=== PATIENT | female | born 1965 | race Caucasian/White ===

== ENCOUNTER → 2016-10-31 | Outpatient (CLI) | payer OTHER ==
--- NOTE | 2016-11-01 07:42 | MM ---
Reason for exam: screening (asymptomatic). Last mammogram was performed 3 years and 5 months ago. History: Family history of breast cancer in aunt and breast cancer in 2 cousins. Implants in both breasts, 2010. Physical Findings: A clinical breast exam by your physician is recommended on an annual basis and results should be correlated with mammographic findings. MG Screening Mammo Implant/CAD Bilateral CC, MLO, and ID view(s) were taken. Prior study comparison: June 13, 2013, bilateral digital screening mammo w/CAD. January 21, 2010, bilateral digital screening mammogram. The breast tissue is heterogeneously dense. This may lower the sensitivity of mammography. Bilateral implants. No significant changes when compared with prior studies. ASSESSMENT: Benign, BI-RAD 2 RECOMMENDATION: Routine screening mammogram of both breasts in 1 year.
== END | disposition home or self-care (01) ==
LOC: RADMAMWWP 15:31
PROVIDERS: ATTEND Obstetrics & Gynecology
DX: Z12.31 Encounter for screening mammogram for malignant neoplasm of breast (principal)

== ENCOUNTER → 2017-01-24 | Outpatient (CLI) | payer OTHER ==
--- NOTE | 2017-01-24 13:29 | CT ---
EXAMINATION TYPE: CT abdomen pelvis w con DATE OF EXAM: 01/24/2017 COMPARISON: 01/14/2016 INDICATION: Patient complains of periumbilical pain and pulling post tummy tuck 2 years ago. DLP: 347.8 mGycm, Automated exposure control for dose reduction was used. CONTRAST: 100 mL of Omnipaque 300. Study performed with Oral Contrast TECHNIQUE: Axial images were obtained from above the diaphragm to the pubic rami in the axial plane a t 5 mm thick sections. Reconstructed images are reviewed on the computer in the coronal plane. FINDINGS: Limited CT sections are obtained the lung bases. The lung bases are clear. CT ABDOMEN: Liver: Normal Spleen: Normal Pancreas: Normal Adrenal glands: The adrenal glands are normal. Gallbladder: Normal Kidneys: No masses are evident. No hydronephrosis is present. No cysts are present. Delayed images were obtained through the kidneys, which remain unremarkable. Aorta: Normal Inferior vena cava: Normal. CT PELVIS: Loops of bowel within the abdomen and pelvis are normal. There are loops of bowel which are incom pletely distended or lack oral contrast limiting their evaluation. A few scattered diverticuli are wi thin the sigmoid colon. Appendix: Normal as visualized. Urinary bladder: Normal. Genitourinary structures: Uterus is normal. Adnexal regions are clear. Osseous structures: No suspicious lytic or sclerotic lesions. IMPRESSIONS: 1. Diverticulosis without acute diverticulitis sigmoid colon. 2. No suspicious changes in the periumbilical region
== END | disposition home or self-care (01) ==
LOC: RADCTMAIN 09:09
PROVIDERS: ATTEND Surgery
DX: K57.30 Diverticulosis of large intestine without perforation or abscess without bleeding (principal)
CPT/HCPCS: 74177; Q9967

== ENCOUNTER → 2018-06-19 | Outpatient (CLI) | payer OTHER | LOC: LABWHC1 16:35 | PROVIDERS: ATTEND Family Medicine | DX: R19.7 Diarrhea, unspecified (principal) | CPT/HCPCS: 87324 ==

== ENCOUNTER → 2018-07-19 | Outpatient (CLI) | payer OTHER ==
--- NOTE | 2018-07-19 15:35 | CT ---
EXAMINATION TYPE: CT abdomen pelvis w con DATE OF EXAM: 07/19/2018 HISTORY: abdominal pain, cramping, diarrhea, umbilical pain following tummy tuck [address] DLP: 367.3mGycm Automated Exposure Control for Dose Reduction was Utilized. CONTRAST: CT scan of the abdomen and pelvis is performed with IV Contrast, patient injected with 100 mL of Isov ue 300. COMPARISON: 01/24/2017. FINDINGS: LUNG BASES: No significant abnormality is appreciated. LIVER/GB: No significant abnormality is appreciated. PANCREAS: No significant abnormality is seen. SPLEEN: Stable splenule is noted anterolateral to the gastric body on series 3 image 18 unchanged fro m 2017. Additional small splenule is seen inferior to the splenic hilum. ADRENALS: No significant abnormality is seen. KIDNEYS: Kidneys enhance and excrete symmetrically. BOWEL: Few colonic diverticula are redemonstrated without pericolonic fat stranding. No dilated large or small bowel. UTERUS/ADNEXA: No gross abnormality seen. LYMPH NODES: No greater than 1cm abdominal or pelvic lymph nodes are appreciated. OSSEOUS STRUCTURES: No significant abnormality is seen. OTHER: Scarring is seen of the anterior abdominal wall, subtle from the patient's stated prior surgic al intervention. IMPRESSION: No acute finding is seen to account for patient's clinical symptoms. Few colonic divertic law are present without evidence of acute diverticulitis. Again no concerning findings in the periumb ilical region on CT.
== END | disposition home or self-care (01) ==
LOC: RADCTMAIN 14:33
PROVIDERS: ATTEND Family Medicine
DX: K57.30 Diverticulosis of large intestine without perforation or abscess without bleeding (principal)
CPT/HCPCS: 74177; Q9967

== ENCOUNTER → 2020-04-28 | Outpatient (CLI) | payer OTHER ==
--- NOTE | 2020-04-28 17:32 | BD ---
EXAMINATION TYPE: Axial Bone Density DATE OF EXAM: 04/28/2020 COMPARISON: NONE CLINICAL HISTORY: Height: 5 FT 6 1/2 IN Weight: 140 FRAX RISK QUESTIONS: Alcohol (3 or more units per day): NO Family History (Parent hip fracture): YES Glucocorticoids (More than 3mos): NO (Ex: prednisone, prednisolone, methylprednisolone, dexamethasone, and hydrocortisone). History of Fracture in Adulthood: NO Secondary Osteoporosis: 1. Type 1 Diabetes: NO 2. Hyperthyroidism: NO 3. Menopause before 45: NO 4. Malnutrition: NO 5. Chronic liver disease: NO Rheumatoid Arthritis: NO Current Tobacco Use: NO RISK FACTORS HISTORY OF: Family History of Osteoporosis: YES Active: YES Diet low in dairy products/other sources of calcium: NO Postmenopausal woman: AGE 49 Take estrogen and/or progesterone medications: NONE Lost more than 2 inches in height since high school: YES MEDICATIONS: Additional Medications: NONE Additional History: EXAM MEASUREMENTS: Bone mineral densitometry was performed using the [employer] System. Bone mineral density as measured about the Lumbar spine is: ----- L1-L4(G/cm2): 1.117 T Score Values are as follows: ----- L2: -1.3 ----- L3: -0.3 ----- L4: 0.1 ----- L1-L4: -0.5 BASELINE Bone mineral density about the R hip (g/cm2): 0.869 Bone mineral density about the L hip (g/cm2): 0.906 T Score values are as follows: -----R Neck: -1.2 -----L Neck: -1.0 -----R Total: -1.4 -----L Total: -1.4 BASELINE IMPRESSION: Osteopenia (T Score between -2.5 and -1). There is slightly increased risk of fracture and the patient may be considered for treatment. Re-Screen 2-5 years. NOTE: T-SCORE=SD OF THE YOUNG ADULT MEAN.
--- NOTE | 2020-05-03 08:06 | MM ---
Reason for exam: screening (asymptomatic). Last mammogram was performed 3 years and 6 months ago. History: Patient is postmenopausal. Family history of breast cancer in aunt and breast cancer in 2 cousins. Retro-pectoral silicone gel implants in both breasts, 2010. Physical Findings: A clinical breast exam by your physician is recommended on an annual basis and results should be correlated with mammographic findings. MG Screening Mammo Implant/CAD Bilateral CC, MLO, and ID view(s) were taken. Prior study comparison: October 31, 2016, bilateral MG screening mammo implant/CAD. June 13, 2013, bilateral digital screening mammo w/CAD. The breast tissue is heterogeneously dense. This may lower the sensitivity of mammography. Retropectoral silicone implants. No significant changes when compared with prior studies. ASSESSMENT: Negative, BI-RAD 1 RECOMMENDATION: Routine screening mammogram of both breasts.
== END | disposition home or self-care (01) ==
LOC: RADMAMWWP 13:38
PROVIDERS: ATTEND Obstetrics & Gynecology
DX: Z12.31 Encounter for screening mammogram for malignant neoplasm of breast (principal); M85.80 Other specified disorders of bone density and structure, unspecified site
CPT/HCPCS: 77067; 77080

== ENCOUNTER → 2020-08-25 | Outpatient (CLI) | payer OTHER ==
[2020-08-25 14:21] LABS: Basophils # (A) 0.04 X 10*3/uL (0.00-0.10); Basophils % (A) 0.4 %; Eosinophils # (A) 0.17 X 10*3/uL (0.04-0.35); Eosinophils % (A) 1.6 %; HCT 41.1 % (37.2-46.3); HGB 13.9 g/dL (12.0-15.0); Lymphocytes # (A) 0.95 X 10*3/uL (0.90-5.00); Lymphocytes % (A) 8.9 %; MCH 31.2 pg (27.0-32.0); MCHC 33.8 g/dL (32.0-37.0); MCV 92.4 fL (80.0-97.0); Mean Platelet Volume 9.9 fL (9.5-12.2); Monocytes % (A) 7.5 %; Neutrophils # (A) 8.63 X 10*3/uL (1.80-7.70); Neutrophils % (A) 81.2 %; Platelet Count 306 X 10*3/uL (140-440); RBC 4.45 X 10*6/uL (4.10-5.20); RDW 12.1 % (11.5-14.5); WBC 10.63 X 10*3/uL (4.50-10.00)
[2020-08-25 16:51] LABS: ALT 15 U/L (8-44); AST 18 U/L (13-35); African American GFR (CKD) 96.9 (60.0-200.0); Albumin/Globulin Ratio 1.92 (1.60-3.17); Alkaline Phosphatase 80 U/L (41-126); Calcium 9.7 mg/dL (8.7-10.3); Carbon Dioxide 25.6 mmol/L (21.6-31.8); Chloride 106 mmol/L (96-109); Cholesterol 184 mg/dL (0-200); Globulin 2.4 g/dL (1.6-3.3); Glucose 91 mg/dL (70-110); Non-African American GFR(CKD) 83.6 (60.0-200.0); Sodium 141 mmol/L (135-145); Total Bilirubin 0.9 mg/dL (0.2-1.2); Triglycerides <50.0 mg/dL (0.0-149.0)
== END | disposition home or self-care (01) ==
LOC: LABWHC1 08:03
PROVIDERS: ATTEND Family Medicine
DX: Z00.00 Encounter for general adult medical examination without abnormal findings (principal); F10.10 Alcohol abuse, uncomplicated; I10 Essential (primary) hypertension
CPT/HCPCS: 36415; 80053; 80061; 85025

== ENCOUNTER → 2022-08-09 | Outpatient (CLI) | payer OTHER ==
[2022-08-09 09:59] VITALS: BP 134/84; PULSE 70; RESP 16; TEMP 98.6
--- NOTE | 2022-08-09 11:24 | P.HPOB ---
History of Present Illness H&P Date: 08/09/22 Chief Complaint: The patient is here for her routine gynecologic exam. This is a 56-year-old with an LMP of 2017. Patient is here to establish with this office. She previously saw Dr. Edgar for her gynecologic care. It has been about 3 years since her last pelvic exam. She is without gynecologic complaints and denies any postmenopausal bleeding. The patient previously used Wellbutrin for 10 years for anxiety and depression. She has been off of this for the last few years. She is requesting to restart this for anxiety until she can establish with a primary care physician. She denies any current depression. Review of Systems The patient's weight has been stable over the last year. She denies respiratory, cardiac, or G.I. problems. Past Medical History Past Medical History: No Reported History Additional Past Medical History / Comment(s): Osteopenia. 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 History of Any Multi-Drug Resistant Organisms: None Reported Past Surgical History: Breast Surgery Additional Past Surgical History / Comment(s): Silicone BREAST IMPLANTS 2012, abdominoplasty 2013. Colonoscopy 2016(next after 10yr). Past Anesthesia/Blood Transfusion Reactions: No Reported Reaction Past Psychological History: Anxiety, Depression (She denies current depression.) Smoking Status: Former smoker Past Alcohol Use History: None Reported Additional Past Alcohol Use History / Comment(s): History of heavier alcohol use in the past. She states she quit in early 2021. Past Drug Use History: None Reported Additional History: She is and has been with her boyfriend since 2018 and they live together. 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 - Past Family History Father Family Medical History: Myocardial Infarction ([place]) Mother Family Medical History: Cancer Additional Family Medical History / Comment(s): Widespread cancer without known primary. Maternal aunt had breast cancer. Medications and Allergies Home Medications Medication Instructions Recorded Confirmed Type Multivitamin [Multivitamins Adult 1 tab PO DAILY 08/09/22 08/09/22 History Gummies] Allergies Allergy/AdvReac Type Severity Reaction Status Date / Time No Known Allergies Allergy Unverified 08/09/22 09:53 Exam Vital Signs Temp Pulse Resp BP Pulse Ox 08/09/22 09:54 98.6 F 70 16 134/84 95 Intake and Output 08/08/22 08/09/22 08/09/22 22:59 06:59 14:59 Other: Weight 62.596 kg Height 5 feet 8 inches, weight 138 pounds, BMI 21.0. This is a well-developed well-nourished white female who is alert and oriented times 3 in no acute distress. HEENT: Within normal limits. NECK: Supple without mass or thyromegaly. CHEST AND LUNGS: Clear to auscultation. HEART: Regular rate and rhythm. BREASTS: Are without mass or discharge. Breasts are consistent with bilateral breast implants. AXILLARY EXAM: Negative for adenopathy. BACK: Negative for CVA tenderness. ABDOMEN: Soft, nontender, without palpable masses. PELVIC EXAM: Normal external genitalia with mild atrophy. Cervix and vagina appear normal mild atrophy. There is no unusual discharge. There is no evidence of prolapse. The uterus is midposition, nongravid size and nontender. There are no palpable adnexal masses or tenderness. RECTAL EXAM: Rectovaginal exam is negative for mass or tenderness and is negative for occult blood. EXTREMITIES: Nontender. IMPRESSION: 1. 56-year-old menopausal female with normal gynecologic exam. 2. History osteopenia. 3. History of anxiety previously on Wellbutrin. The patient is requesting to be restarted on Wellbutrin for this. PLAN: 1. Pap smear coated test was performed. 2. Self breast awareness was discussed with the patient. We have also discussed symptoms associated with inflammatory breast cancer. 3. Screening mammogram is due and the order slip was given to the patient for this. 4. Osteoporosis prevention was discussed. I have stressed the importance of adequate calcium, vitamin D and regular exercise. Recommended amounts of calcium and vitamin D were also discussed. We will plan on repeating the bone density test in 1 year. 5. She will be restarted on Wellbutrin 75 mg by mouth 3 times a day. She states she will establish with a primary care physician within the next couple of months. She has requested a lower than typical dose because this is what she had taken in the past. She will call she's having problems with her medications or follow-up with a primary care physician. The electronic prescription will be sent to [facility] in [place]. 6. She was advised to return in one year for her annual well woman exam and as needed.
== END ==
LOC: WWCWWP 09:45
PROVIDERS: ATTEND Obstetrics & Gynecology
DX: Z01.419 Encounter for gynecological examination (general) (routine) without abnormal findings (principal); F32.A Depression, unspecified; F41.9 Anxiety disorder, unspecified; M85.80 Other specified disorders of bone density and structure, unspecified site; Z80.3 Family history of malignant neoplasm of breast; Z82.49 Family history of ischemic heart disease and other diseases of the circulatory system; Z87.891 Personal history of nicotine dependence

== ENCOUNTER → 2022-08-30 | Outpatient (CLI) | payer OTHER ==
--- NOTE | 2022-08-31 12:19 | MM ---
Reason for Exam: Screening (asymptomatic). Last mammogram was performed 2 year(s) and 4 month(s) ago. Patient History: Menarche at age 14. First Full-Term at age 27. Postmenopausal. Patient has history of breast feeding. 2010, Bilateral Implants. Maternal cousin (Laura) had breast cancer, age 38. Maternal cousin (Olivia) had breast cancer, age 58. Maternal aunt had breast cancer, age 63. Risk Values: Kelly 5 year model risk: 1.2%. NCI Lifetime model risk: 8.1%. Prior Study Comparison: 06/13/2013 Bilateral Screening Mammogram, [facility]. 10/31/2016 Bilateral Screening Mammogram, [facility]. 04/28/2020 Bilateral Screening Mammogram, [facility]. Tissue Density: The breast tissue is heterogeneously dense. This may lower the sensitivity of mammography. Findings: Analyzed By CAD. Bilateral breast implants. Benign-appearing calcifications. There is no suspicious group of microcalcifications or new suspicious mass in either breast. Overall Assessment: Benign, BI-RAD 2 Management: Screening Mammogram of both breasts in [address] [facility] will attempt to contact patient to return for supplemental views and ultrasound if indicated. Patient should continue monthly self-breast exams. A clinical breast exam by your physician is recommended on an annual basis. This exam should not preclude additional follow-up of suspicious palpable abnormalities. Note on Kelly scores and lifetime risk: 1. A Kelly score greater than 3% is considered moderate risk. If this is the case, consider specialist referral to assess eligibility for a risk reducing agent. 2. If overall lifetime risk for the development of breast cancer is 20% or higher, the patient may qualify for future screening with alternating mammogram and breast MRI. Electronically signed and approved by: Chris Henderson DO
== END | disposition home or self-care (01) ==
LOC: RADMAMWWP 11:03
PROVIDERS: ATTEND Obstetrics & Gynecology
DX: Z12.31 Encounter for screening mammogram for malignant neoplasm of breast (principal); Z78.0 Asymptomatic menopausal state; Z80.3 Family history of malignant neoplasm of breast
CPT/HCPCS: 77063; 77067

== ENCOUNTER → 2023-12-05 | Outpatient (CLI) | payer OTHER ==
--- NOTE | 2023-12-05 12:26 | CT ---
EXAMINATION TYPE: CT iac wo con DATE OF EXAM: 12/05/2023 COMPARISON: None HISTORY: right ear hearring loss CT DLP: 202mGycm Automated exposure control for dose reduction was used. FINDINGS: The external auditory canals are patent bilaterally. Mastoid air cells show no evidence of abnormal opacification bilaterally. The middle ear ossicles ar e symmetric and unremarkable. There is no evidence of suspicious surrounding soft tissue density to suggest cholesteatoma. The scu karly is preserved bilaterally. The cochlea and the semicircular canals are symmetric and unremarkable . Vestibular aqueduct and internal carotid canal appear unremarkable. Temporomandibular joints are maintained bilaterally. Nonspecific small lucency involving the body of C2 on the left too small to characterize. Minimal changes of chronic sinusitis. IMPRESSION: No significant abnormality seen to account for patient's symptoms. If symptoms are persi stent consider follow-up MRI IACs
== END | disposition home or self-care (01) ==
LOC: RADCTMAIN 11:27
PROVIDERS: ATTEND Otolaryngology
DX: H90.41 Sensorineural hearing loss, unilateral, right ear, with unrestricted hearing on the contralateral side
CPT/HCPCS: 70480

== ENCOUNTER → 2024-10-07 | Outpatient (CLI) | payer OTHER ==
[2024-10-07 14:58] VITALS: BP 161/91; PULSE 66; RESP 16; TEMP 98.4
--- NOTE | 2024-10-07 15:48 | P.HPOB ---
History of Present Illness H&P Date: 10/07/24 Chief Complaint: The patient is here for her routine gynecologic exam. This is a 58-year-old G2, P2 with an LMP of 2017. The patient is without gynecologic complaints and denies any postmenopausal bleeding. Review of Systems The patient's weight has been stable over the last year. She denies respiratory, cardiac, or G.I. problems. Past Medical History Past Medical History: No Reported History Additional Past Medical History / Comment(s): Osteopenia. 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 History of Any Multi-Drug Resistant Organisms: None Reported Past Surgical History: Breast Surgery Additional Past Surgical History / Comment(s): Silicone BREAST IMPLANTS 2012, abdominoplasty 2013. Colonoscopy 2016(next after 10yr). Past Anesthesia/Blood Transfusion Reactions: No Reported Reaction Past Psychological History: Anxiety, Depression Smoking Status: Former smoker Past Alcohol Use History: Occasional (About 10 drinks per month.) Additional Past Alcohol Use History / Comment(s): History of heavier alcohol use in the past. She states she quit in early 2021, but does drink alcohol again. Past Drug Use History: None Reported Additional History: She is and has been with her boyfriend since 2018 and they live together. 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 - Past Family History Father Family Medical History: Myocardial Infarction ([place]) Mother Family Medical History: Cancer Additional Family Medical History / Comment(s): Widespread cancer without known primary. Maternal aunt had breast cancer. Medications and Allergies Home Medications Medication Instructions Recorded Confirmed Type Multivitamin [Multivitamins Adult 1 tab PO DAILY 08/09/22 10/07/24 History Gummies] Allergies Allergy/AdvReac Type Severity Reaction Status Date / Time No Known Allergies Allergy Unverified 10/07/24 14:54 Exam Vital Signs Temp Pulse Resp BP Pulse Ox 10/07/24 14:55 98.4 F 66 16 161/91 99 Intake and Output 10/07/24 10/07/24 10/07/24 06:59 14:59 22:59 Other: Weight 63.503 kg Height 5 feet 7 inches, weight 140 pounds, BMI 21.9. This is a well-developed well-nourished white female who is alert and oriented times 3 in no acute distress. HEENT: Within normal limits. NECK: Supple without mass or thyromegaly. CHEST AND LUNGS: Clear to auscultation. HEART: Regular rate and rhythm. BREASTS: Are without mass or discharge. Breasts are consistent with bilateral implants. AXILLARY EXAM: Negative for adenopathy. BACK: Negative for CVA tenderness. ABDOMEN: Soft, nontender, without palpable masses. PELVIC EXAM: Normal external genitalia with mild atrophy. Cervix and vagina appear normal with mild atrophy. There is no unusual discharge. There is no evidence of prolapse. The uterus is midposition, nongravid size and nontender. There are no palpable adnexal masses or tenderness. RECTAL EXAM: Rectovaginal exam is negative for mass or tenderness and is negative for occult blood. EXTREMITIES: Nontender. IMPRESSION: 1. 58-year-old menopausal female with normal gynecologic exam. 2. History of osteopenia. 3. Elevated blood pressure. PLAN: 1. Pap smear was deferred since she had a negative Pap smear cotest on 08/09/2022. 2. Self breast awareness was discussed with the patient. We have also discusse d symptoms associated with inflammatory breast cancer. 3. Screening mammogram is due and the order slip was given to the patient for this. Her last 1 was benign on 08/30/2022. 4. Osteoporosis prevention was discussed. I have stressed the importance of adequate calcium, vitamin D and regular exercise. Recommended amounts of calcium and vitamin D were also discussed. Her last bone density test was on 04/28/2020. I have recommended repeating the bone density test and the order slip was given to the patient for this. 5. We have discussed her elevated blood pressure. I have recommended that she check her own blood pressures at home since she does have a blood pressure cuff. She states she has been told that it has been borderline in the past. I have recommended that she follow-up with her PCP for blood pressure elevations. 6. She was advised to return in one year for her annual well woman exam.
== END ==
LOC: WWCWWP 14:40
PROVIDERS: ATTEND Obstetrics & Gynecology
DX: Z01.419 Encounter for gynecological examination (general) (routine) without abnormal findings (principal); I10 Essential (primary) hypertension; Z78.0 Asymptomatic menopausal state; Z87.39 Personal history of other diseases of the musculoskeletal system and connective tissue